=== PATIENT | male | born 1990 | race Caucasian/White ===

== ENCOUNTER 2024-04-21 13:17 | Inpatient (IN) | payer OTHER ==
[2024-04-21 13:59] VITALS: BMI 19.9
[2024-04-21] MEDS ORDERED: DICYCLOMINE HCL 10 MG CAPSULE PO PRN (14:47)
[2024-04-21] MEDS ORDERED: ACETAMINOPHEN 325 MG TABLET (FP) PO PRN (14:47)
[2024-04-21] MEDS ORDERED: NALOXONE HCL 0.4 MG/ML VIAL IM PRN (14:47)
[2024-04-21] MEDS ORDERED: MAGNESIUM HYDROX 2400MG/30ML ORAL SUSPENSION 30 ML CUP PO PRN (14:47)
[2024-04-21] MEDS ORDERED: BISMUTH SUBSALICYLATE 524 MG/30 ML PO PRN (14:47)
[2024-04-21] MEDS ORDERED: NALOXONE (NARCAN) HCL 4 MG/0.1 ML SPRAY NS PRN (14:47)
[2024-04-21] MEDS ORDERED: POLYETHYLENE GLYCOL (HEALTHYLAX) 3350 17 GM PACKET PO PRN (14:47)
[2024-04-21] MEDS ORDERED: guaiFENesin 600 MG TABLET.ER (FP) PO PRN (14:47)
[2024-04-21] MEDS ORDERED: LOPERAMIDE HCL 2 MG CAPSULE PO PRN (14:47)
[2024-04-21] MEDS ORDERED: ONDANSETRON *ODT* 4 MG TABLET SL PRN (14:47)
[2024-04-21] MEDS ORDERED: MAG HYDROX/AL HYDROX/SIMETH 30 ML UNIT-DOSE CUP PO PRN (14:47)
[2024-04-21] MEDS ORDERED: BENZOCAINE/MENTHOL (CHLORASEPTIC ) LOZENGE MM PRN (14:47)
[2024-04-21] MEDS ORDERED: cloNIDine HCL 0.1 MG TABLET PO PRN (14:49)
[2024-04-21] MEDS ORDERED: methaDONE HCL 10 MG TABLET (FOR DETOX USE ONLY) ONE (15:18)
[2024-04-21] MEDS: methaDONE HCL 10 MG TABLET (FOR DETOX USE ONLY) PO ONE (15:24)
[2024-04-21] MEDS: NICOTINE POLACRILEX 2 MG GUM BUC PRN (16:03)
[2024-04-21] MEDS: IBUPROFEN 400 MG TABLET (FP) PO PRN (18:04)
[2024-04-21] MEDS: hydrOXYzine PAMOATE 25 MG CAPSULE (FP) PO PRN (20:46)
[2024-04-21] MEDS: METHOCARBAMOL 500 MG TABLET PO PRN (20:46)
[2024-04-21] MEDS: BENZONATATE 200 MG CAPSULE PO PRN (20:48)
[2024-04-21] MEDS: MELATONIN 5 MG TABLETS PO SCH (22:01)
[2024-04-21] MEDS: THIAMINE 100 MG TABLET PO SCH (22:01)
[2024-04-22] MEDS: IBUPROFEN 600 MG TABLET (FP) PO PRN (05:32)
[2024-04-22] MEDS: PRENATAL VITAMINS W/ FOLIC ACID TABLET (FP) PO SCH (10:29)
[2024-04-22] MEDS: QUEtiapine FUMARATE 50 MG TABLET PO SCH (21:33)
[2024-04-23] MEDS: methaDONE HCL 10 MG TABLET (FOR DETOX USE ONLY) PO ONE (09:45)
[2024-04-24 06:11] VITALS: RESP 16
[2024-04-24 08:44] VITALS: BP 105/59; PULSE 64; TEMP 98.6
[2024-04-24] MEDS ORDERED: diazePAM 5 MG TABLET PO PRN (09:09)
[2024-04-25] MEDS ORDERED: methaDONE HCL 10 MG TABLET (FOR DETOX USE ONLY) PO ONE (10:00)
== END 2024-04-24 12:00 | disposition home or self-care (01) | DRG 773 ==
LOC: YASAS 13:17 → Y6N 15:36
PROVIDERS: ADMIT Allergy & Immunology; ATTEND Surgery
PROC: HZ2ZZZZ Detoxification Services for Substance Abuse Treatment (ICD-10-PCS; principal; 2024-04-21)
DX: F11.23 Opioid dependence with withdrawal (principal); F14.20 Cocaine dependence, uncomplicated; F17.210 Nicotine dependence, cigarettes, uncomplicated; F31.9 Bipolar disorder, unspecified; F19.24 Other psychoactive substance dependence with psychoactive substance-induced mood disorder; F43.10 Post-traumatic stress disorder, unspecified; Z56.0 Unemployment, unspecified; Z59.00 Homelessness unspecified
CPT/HCPCS: 36415; 80305; 80307; 93005; 93010